=== PATIENT | male | born 1945 | race Two or more races ===

== ENCOUNTER 2019-10-25 21:15 | Emergency (ER) | payer MEDICARE, MEDICAID ==
--- NOTE | 2019-10-25 22:54 | ER Document Report ---
ED Medical Screen (RME) - General Chief Complaint: Headache Stated Complaint: HEADACHE,BLOOD SUGAR PROBLEM Time Seen by Provider: 10/25/19 22:51 Notes: HPI: 74-year-old male with diabetes hypertension high cholesterol and stroke x2 presenting for worsened generalized headache today. Headache worsened this afternoon. Patient states he has daily headaches since his strokes last year. Has requested referral to neurology from his PCP will has not yet received that. States headache became worse today, he did take 2 Tylenol this afternoon around 4 PM which did slightly help the headache. Denies visual change or loss, denies unilateral new onset weakness. Denies slurred speech PHYSICAL EXAMINATION: Patient able to ambulate to the room with a cane. Patient answers all questions appropriately. No nystagmus. I have greeted and performed a rapid initial assessment of this patient. A comprehensive ED assessment and evaluation of the patient, analysis of test results and completion of medical decision making process will be conducted by an additional ED providers. Physical Exam - Vital signs Vitals: Temp Pulse Resp BP Pulse Ox 97.9 F 97 16 140/64 H 96 10/25/19 21:23 10/25/19 21:23 10/25/19 21:23 10/25/19 21:23 10/25/19 21:23 Course - Vital Signs Vital signs: Temp Pulse Resp BP Pulse Ox 97.9 F 97 16 140/64 H 96 10/25/19 21:23 10/25/19 21:23 10/25/19 21:23 10/25/19 21:23 10/25/19 21:23
[2019-10-25 23:39] LABS: ABSOLUTE BASOPHILS # (AUTO) 0.1 10^3/uL (0.0-0.2); ABSOLUTE EOSINOPHILS # (AUTO) 0.1 10^3/uL (0.0-0.6); ABSOLUTE LYMPHOCYTES (AUTO) 1.4 10^3/uL (0.5-4.7); ABSOLUTE MONOCYTES (AUTO) 0.7 10^3/uL (0.1-1.4); ABSOLUTE NEUT (AUTO) 4.2 10^3/uL (1.7-8.2); BASOPHILS % (AUTO) 0.8 % (0-2); EOSINOPHILS % (AUTO) 2.1 % (0-6); HEMOGLOBIN 10.6 g/dL (13.5-17.0); MEAN CORPUSCULAR HGB CONC 34.3 g/dL (32.0-36.0); MEAN CORPUSCULAR VOLUME 73 fl (80-97); MONOCYTES % (AUTO) 10.6 % (3-13); PLATELET COUNT 310 10^3/uL (150-450); RED BLOOD COUNT 4.25 10^6/uL (4.35-5.55); RED CELL DISTRIBUTION WIDTH 20.1 % (11.5-14.0); SEGMENTED NEUTROPHILS % (AUTO) 64.5 % (42-78); TOTAL CELLS COUNTED % (AUTO) 100 %; WHITE BLOOD COUNT 6.5 10^3/uL (4.0-10.5)
--- NOTE | 2019-10-25 23:49 | RADIOLOGY REPORT (SQ) ---
INDICATION: headache stroke hx. COMPARISON: None CORRELATION: None TECHNIQUE: Noncontrast spiral axial CT images were obtained from the skull base to vertex. This exam was performed according to our departmental dose-optimization program, which includes automated exposure control, adjustment of the mA and/or kV according to patient size and/or use of iterative reconstruction techniques. FINDINGS: There is no evidence of acute intracranial hemorrhage, midline shift, mass effect or mass lesion. Perez-white differentiation is normal. There is no evidence of acute large territory infarct. Ventricles and extracerebral spaces are within normal limits, for age. The visualized paranasal sinuses are grossly clear. The orbits and eyeballs are unremarkable. The mastoid air cells are clear. Skull base and calvarium appear intact. IMPRESSION: No acute intracranial process is identified.
[2019-10-25 23:54] LABS: ALBUMIN 4.8 g/dL (3.5-5.0); ALKALINE PHOSPHATASE 81 U/L (38-126); ANION GAP 11 (5-19); ASPARTATE AMINO TRANSFERASE 14 U/L (17-59); BILIRUBIN,TOTAL 0.5 mg/dL (0.2-1.3); BLOOD UREA NITROGEN 35 mg/dL (7-20); CALCIUM 9.9 mg/dL (8.4-10.2); CARBON DIOXIDE 27 mmol/L (22-30); CHLORIDE 99 mmol/L (98-107); GLUCOSE 193 mg/dL (75-110); POTASSIUM 5.1 mmol/L (3.6-5.0); TOTAL PROTEIN 8.1 g/dL (6.3-8.2)
[2019-10-26] MEDS ORDERED: KETOROLAC TROMETHAMINE INJ/PF 30 MG/1 ML SDV IV ONE (02:26)
[2019-10-26] MEDS ORDERED: NORMAL SALINE 250 ML IV ONE (02:28)
[2019-10-26 02:47] LABS: APPEARANCE,URINE CLEAR; BILIRUBIN,URINE NEGATIVE (NEGATIVE); COLOR,URINE YELLOW; GLUCOSE, URINE NEGATIVE (NEGATIVE); KETONES,URINE NEGATIVE (NEGATIVE); PROTEIN,URINE NEGATIVE (NEGATIVE); URINE SPECIFIC GRAVITY 1.016; UROBILINOGEN,URINE NEGATIVE mg/dL (<2.0)
[2019-10-26 03:25] LABS: INTERNATIONAL RATION (INR) 1.06; PROTHROMBIN TIME 13.9 SEC (11.4-15.4)
--- NOTE | 2019-10-26 03:47 | ER Document Report ---
Entered by NORBERTO JACKSON SCRIBE 10/26/19 0226 Acting as scribe for:RODOLFO CAREY IV, MD ED Headache - General Chief Complaint: Headache Stated Complaint: HEADACHE,BLOOD SUGAR PROBLEM Time Seen by Provider: 10/25/19 22:51 Mode of Arrival: Ambulatory Information source: Patient, Relative Notes: This 74 year old male patient with a past medical history significant for diabetes, HLD, [place], and CVA x2 presents to the ED today accompanied by a relative with complaints of a severe generalized headache that started around 1600 yesterday afternoon. Patient is Khmer-speaking, so HPI is being relayed via [employer]. Patient had x2 strokes in March 2019 and has been complaining of headaches of varying intensity every day since. Patient took x2 Tylenol around 1999 that provided mild relief. Patients also complains of urinary frequency and intermittent constipation. According to patient's relative at bedside, the patient is "ill from his prostate" and has an appointment for a biopsy scheduled some time this month. He also sleeps during the day and is awake all night per relative. Relative admits that the patient does snore and that his PO intake consists of foods/drinks with a lot of sugar. - Related Data Home Medications: see list Past Medical History - General Information source: Patient, Relative - Social History Smoking Status: Former Smoker Cigarette use (# per day): No Chew tobacco use (# tins/day): No Smoking Education Provided: No Lives with: Family Family History: Reviewed & Not Pertinent Patient has suicidal ideation: No Patient has homicidal ideation: No - Past Medical History Cardiac Medical History: Reports: Hx Coronary Artery Disease, Hx Heart Attack, Hx Hypercholesterolemia Neurological Medical History: Reports: Hx Cerebrovascular Accident - x2 in N 2018 Endocrine Medical History: Reports: Hx Diabetes Mellitus Type 1, Hx Diabetes Mellitus Type 2 Past Surgical History: Reports: Hx Neurologic Surgery - spinal surgery due to an accident, Hx Vascular Surgery - x2 leg Review of Systems - Review of Systems Constitutional: No symptoms reported EENT: No symptoms reported Cardiovascular: No symptoms reported Respiratory: No symptoms reported Gastrointestinal: See HPI, Constipation Genitourinary: See HPI, Frequency Male Genitourinary: No symptoms reported Musculoskeletal: No symptoms reported Skin: No symptoms reported Hematologic/Lymphatic: No symptoms reported Neurological/Psychological: See HPI, Headaches -: Yes All other systems reviewed and negative Physical Exam - Vital signs Vitals: Temp Pulse Resp BP Pulse Ox 97.9 F 97 16 140/64 H 96 10/25/19 21:23 10/25/19 21:23 10/25/19 21:23 10/25/19 21:23 10/25/19 21:23 - General General appearance: Alert In distress: None - HEENT Head: Normocephalic, Atraumatic Eyes: Normal, Other - No nystagmus or photophobia Pupils: PERRL Neck: No: Meningismus - Respiratory Respiratory status: No respiratory distress Chest status: Nontender Breath sounds: Normal Chest palpation: Normal - Cardiovascular Rhythm: Regular Heart sounds: Normal auscultation Murmur: No Friction rub: No Gallop: None auscultated - Abdominal Inspection: Normal Distension: No distension Bowel sounds: Normal Tenderness: Nontender - Abdomen soft Organomegaly: No organomegaly - Back Back: Normal, Nontender - Extremities General upper extremity: Normal inspection General lower extremity: Normal inspection - Neurological Neuro grossly intact: Yes Orientation: AAOx4 - Psychological Associated symptoms: Normal affect, Normal mood - Skin Skin Temperature: Warm Skin Moisture: Dry Skin Color: Normal Course - Re-evaluation Re-evalutation: 10/26/19 05:21 Results of ED MSE discussed with patient and patient's family member. All questions were answered prior to discharge. Emergency signs and symptoms, re asons to return to the emergency department discussed with patient. - Vital Signs Vital signs: Temp Pulse Resp BP Pulse Ox 98.5 F 70 14 118/58 L 96 10/26/19 00:57 10/26/19 00:57 10/26/19 00:57 10/26/19 00:57 10/26/19 00:57 - Laboratory Result Diagrams: 10/25/19 23:14 10/25/19 23:14 Laboratory results interpreted by me: 10/25/19 10/25/19 10/25/19 23:09 23:14 23:14 RBC 4.25 L Hgb 10.6 L Hct 31.0 L MCV 73 L MCH 25.0 L RDW 20.1 H Potassium 5.1 H BUN 35 H Creatinine 1.50 H Est GFR ( Amer) 55 L Est GFR (MDRD) Non-Af 46 L Glucose 193 H POC Glucose 206 H AST 14 L Urine Blood 10/25/19 23:20 RBC Hgb Hct MCV MCH RDW Potassium BUN Creatinine Est GFR ( Amer) Est GFR (MDRD) Non-Af Glucose POC Glucose AST Urine Blood MODERATE H - Diagnostic Test Radiology reviewed: Reports reviewed Discharge - Discharge Clinical Impression: Headache Qualifiers: Headache type: unspecified Headache chronicity pattern: chronic headache Intractability: not intractable Qualified Code(s): R51 - Headache Insomnia Qualifiers: Insomnia type: unspecified Qualified Code(s): G47.00 - Insomnia, unspecified Constipation Qualifiers: Constipation type: unspecified constipation type Qualified Code(s): K59.00 - Constipation, unspecified Condition: Good Disposition: HOME, SELF-CARE Additional Instructions: Return to the Emergency Department without delay if any worse. You can use BENADRYL or MELATONIN to help with sleep. HOME CARE INSTRUCTIONS & INFORMATION: Thank you for choosing us for your medical needs. We hope you're satisfied with the care you received. After you leave, you must properly care for your problem and, at the same time, observe its progress. Any condition can change. Some illnesses can change rapidly over hours or days. If your condition worsens, return to the Emergency Department or see your physician promptly. ABOUT YOUR X-RAYS AND EKG'S: If you had an EKG or X-rays taken, they have been read by the Emergency Physician. The X-rays and EKG's will also be read by a Radiologist or Smoking Tobacco Cutter Operator within 24 hours. If discrepancies are noted, you will be notified by telephone. Please be certain the ED has a correct telephone number & address where you can be reached. Also, realize that some fractures or abnormalities do not show up on initial X-rays. If your symptoms continue, see your physician. ABOUT YOUR LABORATORY TEST: If you had laboratory tests, the results have been reviewed by the Emergency Physician. Some test results (for example cultures) may not be available for several days. You will be contacted if any test result shows you need additional treatment. Please be certain the ED has a correct telephone number and address where you can be reached. ABOUT YOUR MEDICATIONS: You will receive instructions on how to take your medic ine on the prescription label you receive. Additional information may be provided by the Pharmacy. If you have questions afterwards, call the ED for clarification or further instructions. Some prescribed medications may cause drowsiness. Do not perform tasks such as driving a car or operating machinery without consulting your Pharmacist. If you feel you need a refill of pain medication, your condition will need re-evaluation. Please do not call for a refill of any medication. ABOUT YOUR SIGNATURE: Signature of this document acknowledges to followin. Understanding that you received emergency treatment and that you may be released before al medical problems are known or treated. Please be certain the ED has a correct phone number & address where you can be reached. 2. Acknowledgement that you will arrange for follow-up care as recommended. 3. Authorization for the Emergency Physician to provide information to your follow-up Physician in order to maximize your care. AT ANY TIME, IF YOUR SYMPTOMS CHANGE SIGNIFICANTLY OR WORSEN OR YOU DEVELOP NEW SYMPTOMS, RETURN TO THE EMERGENCY DEPARTMENT IMMEDIATELY FOR RE-EVALUATION. OUR GOAL IS TO PROVIDE EXCELLENT MEDICAL CARE! WE HOPE THAT WE HAVE MET YOUR EXPECTATIONS DURING YOUR EMERGENCY DEPARTMENT VISIT AND THAT YOU FEEL YOU HAVE RECEIVED EXCELLENT CARE! Constipation Constipation is a common problem. It is especially likely as you get older . Constipation is a common cause of abdominal pain, but sometimes causes no symptoms at all. Causes of constipation include certain medications, dehydration, diets, inactivity, and low-fiber intake. Rarely, it can be a symptom of underlying disease. The physician has evaluated you for this. Avoid constipation by eating a diet high in fiber, fruits, and vegetables. Drink plenty of liquids. Get regular exercise. If possible, avoid constipating medicines like narcotic pain medication. Some vitamin tablets can cause constipation. Stool softeners may be needed for difficult cases. An excellent stool softener is Konsyl which is available at [facility], and [employer] drug store. Just add a teaspoon to a glass of pineapple or orange juice daily or twice a day if needed. Laxatives are useful for occasional constipation. You should use them only when necessary. Too-frequent use can make your bowels dependent on them. Some over the counter laxatives available without prescription are: Milk of Magnesia, 1-2 tablespoons twice a day Dulcolax, 5 mg pill or 10 mg suppository. Citrate of Magnesia, 4-5 ounces a day for a day or two For acute constipation, Fleet's Enemas and Dulcolax suppositories are helpful. Chronic, mcfp use of laxatives or enemas is not a good idea. Your bowel may become dependant on them. You do not need to have a bowel movement every day. Many people do fine with a bowel movement every three or four days. You should call your doctor or return for re-evaluation if you pass blood in the stool, or if you develop fever or increasing abdominal pain. Headache The physician does not feel that the headache you are experiencing has a serious underlying cause. Most headaches are due to emotional stress, with resultant muscle tension (tension headache). Occasionally, headaches are secondary to changes in the blood vessels of the scalp (vascular headache and migraine headache). Sometimes, a headache is the first symptom of another developing illness, such as a viral infection. You have no evidence of stroke, bleeding, meningitis, or other serious cause of your headache. The treatment of headaches varies with the severity and cause of the pain. Not all headaches need pain shots. In fact, there is evidence that using narcotics for headaches may make them worse in the long run. The physician will determine the therapy that's in your best interest. If you develop a fever, if the headache is different from any you've previously experienced, or if the headache progressively worsens, then call your physician at once or go to the emergency room. Insomnia Everybody has trouble sleeping now and then. When it becomes a frequent problem, you must look for an underlying cause. Depression can interfere with sleep. Anxiety keeps people from falling asleep, while true depression causes fitful sleep and early awakening. If you think anxiety or depression might be your problem, your doctor can help. Many medicines can interfere with sleep. Try cutting back or eliminating caffeine. Watch out for "energizing" vitamins and herbs! Alcohol interferes powerfully with normal sleep. "Rebound insomnia" results when you stop taking sedating medicines like antihistamines, antianxiety medicine, or sleeping pills. Any medical problem that causes pain or bladder discomfort can interfere with sleep. Discuss any problem you have with your doctor. Get regular exercise. Have regular sleep times. Don't "sleep in." Avoid late afternoon naps. Sleeping pills may be temporarily helpful, but are never a long-term solution. Referrals: BRIELLE JIMENEZ MD [HONORARY] - Follow up as needed Print Language: Khmer I personally performed the services described in the documentation, reviewed and edited the documentation which was dictated to the scribe in my presence, and it accurately records my words and actions.
[2019-10-26 05:58] VITALS: BP 128/52
== END 2019-10-26 05:56 | disposition home or self-care (01) ==
LOC: ER 21:15
DX: R51 Headache (principal); G47.00 Insomnia, unspecified; K59.00 Constipation, unspecified; R06.83 Snoring; R35.0 Frequency of micturition; E11.9 Type 2 diabetes mellitus without complications; I25.10 Atherosclerotic heart disease of native coronary artery without angina pectoris; I25.2 Old myocardial infarction; Z86.73 Personal history of transient ischemic attack (TIA), and cerebral infarction without residual deficits; Z87.891 Personal history of nicotine dependence
CPT/HCPCS: 99284; 96361; 96374; 36415; 82962; 85025; 85610; 80053; 81001; 70450; J1885; J7050

== ENCOUNTER 2020-01-19 14:00 | Emergency (ER) | payer MEDICARE, MEDICAID ==
[2020-01-19 14:11] VITALS: BP 139/62
[2020-01-19] MEDS ORDERED: NORMAL SALINE 1000 ML 1,000 ML IV ONE (14:17)
--- NOTE | 2020-01-19 14:18 | ER Document Report ---
ED Blood Sugar Problem - General Chief Complaint: High Blood Sugar Stated Complaint: BLOOD SUGAR PROBLEMS Time Seen by Provider: 01/19/20 14:14 Mode of Arrival: Wheelchair Information source: Patient, Relative Notes: 74-year-old male presented to ED for complaint of high blood pressure high blood sugar and frequent urination. He states that is very uncomfortable having such frequent urination. He does have type 2 diabetes. He is on pills for his diabetes. He does speak Maltese so I will need to get a complete exam using the [employer]. Cecile recyclable materials collector #[id number] I determined that the patient is here mainly because he is voiding every 1/2-1 hour since morning. He states he does have a history of prostate problem and he did have a breakfast of almost all starches. He states that he takes glipizide they called his doctor and they increase that to 2 pills a day instead of 1 because his sugar was so high. We have convinced the patient that he needs to lose a new self catheter every time he self caths himself. Family states he has a big box of them but never wants to throw them away. Get the blood work and urine and then determine what other treatments he needs. I have ordered a liter of fluid and the Latham catheter to bring down his current sugar. REVIEW OF SYSTEMS: CONSTITUTIONAL : Denies fever, chills, or sweats. Denies recent illness. EENT: Denies eye, ear, throat, or mouth pain or symptoms. Denies nasal or sinus congestion. CARDIOVASCULAR: Denies chest pain. RESPIRATORY: Denies cough, cold, or chest congestion. Denies shortness of breath, difficulty breathing, or wheezing. GASTROINTESTINAL: Denies abdominal pain. Denies nausea, vomiting, or diarrhea. Denies constipation. Last BM: GENITOURINARY: Patient self caths due to neurological deficits due to prior neurological surgery prostate cancer MUSCULOSKELETAL: Denies neck or back pain or joint pain or swelling. SKIN: Denies rash or skin lesions. HEMATOLOGIC : Denies easy bruising or bleeding. LYMPHATIC: Denies swollen, enlarged glands. NEUROLOGICAL: Patient has history of 2 prior strokes partial paralysis and prostate cancer causing problems with his urine so he has to self cath he does have some problems with gait but uses a cane. PSYCHIATRIC: Denies anxiety or stress or depression. ALL OTHER SYSTEMS REVIEWED AND NEGATIVE. PHYSICAL EXAMINATION: GENERAL: Well-appearing, well-nourished and in no acute distress. HEAD: Atraumatic, normocephalic. EYES: Pupils equal round and reactive to light, extraocular movements intact, sclera anicteric, conjunctiva are normal. ENT: nares patent, oropharynx clear without exudates. Moist mucous membranes. NECK: Normal range of motion, supple without lymphadenopathy LUNGS: Breath sounds clear to auscultation bilaterally and equal. No wheezes rales or rhonchi. HEART: Regular rate and rhythm without murmurs ABDOMEN: Soft, nontender, normoactive bowel sounds. No guarding, no rebound. No masses appreciated. Genitourinary: Patient was able to self cath after given strict instructions on sterile technique or at least clean technique and to please not repeat use of home catheters when he has a whole box full EXTREMITIES: Normal range of motion, no pitting or edema. No cyanosis. NEUROLOGICAL: Uses cane at home due to neurological deficit from neurological surgeries and previous stroke as well as prostate cancer PSYCH: Normal mood, normal affect. SKIN: Warm, Dry, normal turgor, no rashes or lesions noted. - HPI Onset: Other - Several days Quality of pain: No pain Associated symptoms: Frequent urination, Other - Decreased appetite dry mouth has diabetes Similar symptoms previously: Yes Recently seen / treated by doctor: Yes Past Medical History - General Information source: Patient - Social History Smoking Status: Never Smoker Frequency of alcohol use: None Drug Abuse: None Lives with: Family Family History: Reviewed & Not Pertinent Patient has suicidal ideation: No Patient has homicidal ideation: No - Past Medical History Cardiac Medical History: Reports: Hx Coronary Artery Disease, Hx Heart Attack, Hx Hypercholesterolemia Pulmonary Medical History: Reports: None EENT Medical History: Reports: None Neurological Medical History: Reports: Hx Cerebrovascular Accident - x2 in March 2019 Endocrine Medical History: Reports: Hx Diabetes Mellitus Type 2 Renal/ Medical History: Reports: None Malignancy Medical History: Reports Hx Prostate Cancer GI Medical History: Reports: None Musculoskeletal Medical History: Reports Hx Arthritis, Reports Hx Muscle Weakness Skin Medical History: Reports None Psychiatric Medical History: Reports: None Traumatic Medical History: Reports: None Infectious Medical History: Reports: None Past Surgical History: Reports: Hx Neurologic Surgery - spinal surgery due to an accident, Hx Vascular Surgery - x2 leg Physical Exam - Vital signs Vitals: Temp 98.3 F 01/19/20 14:01 Course - Re-evaluation Re-evalutation: 01/19/20 17:18 Cecile recyclable materials collector [id number] was used to discuss the lab results and the plan for discharge. Patient verbalized understanding and agreement with discharge. Written report of labs was given to patient to follow-up with his primary care doctor. He did have some mild renal insufficiency elevated blood sugar which was treated and he is feeling better with the IV fluids. He will be discharged home to continue his current medications and follow-up with the primary care doctor. - Vital Signs Vital signs: Temp Pulse Resp BP Pulse Ox 97.8 F 76 20 139/62 H 98 01/19/20 14:06 01/19/20 14:06 01/19/20 14:06 01/19/20 14:06 01/19/20 14:06 - Laboratory Result Diagrams: 01/19/20 15:40 01/19/20 15:40 Laboratory results interpreted by me: 01/19/20 01/19/20 01/19/20 14:08 15:30 15:40 Hgb 11.1 L Hct 33.0 L MCV 75 L MCH 25.0 L RDW 18.5 H BUN Creatinine Est GFR (MDRD) Non-Af Glucose POC Glucose 207 H Creatine Kinase Total Protein Albumin Ur Leukocyte Esterase SMALL H 01/19/20 15:40 Hgb Hct MCV MCH RDW BUN 26 H Creatinine 1.29 H Est GFR (MDRD) Non-Af 54 L Glucose 167 H POC Glucose Creatine Kinase 49 L Total Protein 8.6 H Albumin 5.1 H Ur Leukocyte Esterase Discharge - Discharge Clinical Impression: Frequent urination, Renal insufficiency, Elevated blood sugar Condition: Stable Disposition: HOME, SELF-CARE Additional Instructions: DIABETES: You have an abnormally high blood sugar, suspicious for diabetes. Not all high blood sugar requires long-term treatment. High blood sugar can be due to medications, , or the stress of illness. (These cases are "borderline diabetes.") If the doctor feels your high blood sugar might get better with time, you may not require treatment now. It's very important that you follow through. Uncontrolled high blood sugar leads to early heart disease, strokes, nerve damage, eye damage, and kidney damage. All diabetics should follow a diet designed to control the blood sugar. Overweight diabetics should exercise regularly and lose weight. If this is not sufficient to control the blood sugar, pills or insulin shots are necessary. Younger people who develop diabetes almost always require insulin daily. Home testing of blood sugars or urine sugar is required. Diabetic teaching is available to help you figure insulin doses and monitor the blood sugar. Call the physician if there is faintness, excess sleepiness, or very rapid breathing. If hypoglycemia (LOW blood sugar) develops, symptoms are shakiness, weakness, sweating, and confusion. In this case, you should eat or drink something with sugar at once. ORAL HYPOGLYCEMIC MEDICATION: Oral hypoglycemics are medicines that lower blood sugar in diabetics. They are not effective for younger diabetics who require insulin. Some brands are tolbutamide, Orinase, glipizide, Glucotrol, glyburide, DiaBeta, Glynase, and Micronase. Some medications can increase or decrease the effect of Diabinese. Examples are Clofibrate (Atromid-S), phenylbutazone (Butazolidin), aspirin, sulfonamides, Coumadin, allopurinol (Zyloprim), probenecid (Benemid), acetazolamide (Diamox), beta blockers, steroids, estrogens, Indocin, INH, Levothyroxine, nicotinic acid, Diflucan, Dilantin, and thiazide diuretics. Be sure your doctor knows all the medicines you take, and talk to your doctor before making any changes in your medicines. If you develop symptoms of shakiness, sweats, and lightheadedness, your blood sugar may have gone too low. Eat or drink a small amount of sweet food. If symptoms don't go away, call your doctor. Kidney function tests are elevated. Please call these to your primary care doctor. Your BUN was 26 and creatinine was 1.26. You states she has not had any problems with this before. You did not have a UTI. The fact that you have elevated blood sugars and renal insufficiency could be why you are having the frequent urination. Please call your doctor on Tuesday. Given you a copy of your lab work to discuss with your doctor. FOLLOW-UP CARE: If you have been referred to a physician for follow-up care, call the physicians office for an appointment as you were instructed or within the next two days. If you experience worsening or a significant change in your symptoms, notify the physician immediately or return to the Emergency Department at any time for re-evaluation. Forms: Elevated Blood Pressure
[2020-01-19 15:39] LABS: APPEARANCE,URINE CLEAR; BILIRUBIN,URINE NEGATIVE (NEGATIVE); COLOR,URINE COLORLESS; GLUCOSE, URINE NEGATIVE (NEGATIVE); KETONES,URINE NEGATIVE (NEGATIVE); LEUKOCYTE ESTERASE,URINE SMALL (NEGATIVE); NITRITE,URINE NEGATIVE (NEGATIVE); PROTEIN,URINE NEGATIVE (NEGATIVE); URINE SPECIFIC GRAVITY 1.006; UROBILINOGEN,URINE NEGATIVE mg/dL (<2.0)
[2020-01-19 16:03] LABS: VENOUS BLOOD PH 7.37 (7.30-7.42)
[2020-01-19 16:04] LABS: ABSOLUTE BASOPHILS # (AUTO) 0.1 10^3/uL (0.0-0.2); ABSOLUTE EOSINOPHILS # (AUTO) 0.1 10^3/uL (0.0-0.6); ABSOLUTE LYMPHOCYTES (AUTO) 1.2 10^3/uL (0.5-4.7); ABSOLUTE MONOCYTES (AUTO) 0.5 10^3/uL (0.1-1.4); ABSOLUTE NEUT (AUTO) 3.7 10^3/uL (1.7-8.2); EOSINOPHILS % (AUTO) 1.3 % (0-6); HEMOGLOBIN 11.1 g/dL (13.5-17.0); LYMPHOCYTES % (AUTO) 21.2 % (13-45); MEAN CORPUSCULAR HGB CONC 33.5 g/dL (32.0-36.0); MEAN CORPUSCULAR VOLUME 75 fl (80-97); PLATELET COUNT 335 10^3/uL (150-450); RED BLOOD COUNT 4.42 10^6/uL (4.35-5.55); RED CELL DISTRIBUTION WIDTH 18.5 % (11.5-14.0); SEGMENTED NEUTROPHILS % (AUTO) 67.5 % (42-78); TOTAL CELLS COUNTED % (AUTO) 100 %; WHITE BLOOD COUNT 5.4 10^3/uL (4.0-10.5)
[2020-01-19 16:34] LABS: ALBUMIN 5.1 g/dL (3.5-5.0); ALKALINE PHOSPHATASE 73 U/L (38-126); ANION GAP 13 (5-19); ASPARTATE AMINO TRANSFERASE 18 U/L (17-59); BILIRUBIN,DIRECT 0.3 mg/dL (0.0-0.4); BILIRUBIN,TOTAL 0.6 mg/dL (0.2-1.3); BLOOD UREA NITROGEN 26 mg/dL (7-20); CALCIUM 10.2 mg/dL (8.4-10.2); CARBON DIOXIDE 29 mmol/L (22-30); CHLORIDE 100 mmol/L (98-107); CREATINE KINASE 49 U/L (55-170); GLUCOSE 167 mg/dL (75-110); POTASSIUM 4.4 mmol/L (3.6-5.0); TOTAL PROTEIN 8.6 g/dL (6.3-8.2)
== END 2020-01-19 18:19 | disposition home or self-care (01) ==
LOC: ER 14:00
DX: E11.65 Type 2 diabetes mellitus with hyperglycemia (principal); I10 Essential (primary) hypertension; N28.9 Disorder of kidney and ureter, unspecified; R35.0 Frequency of micturition; R63.0 Anorexia; R68.2 Dry mouth, unspecified; I25.10 Atherosclerotic heart disease of native coronary artery without angina pectoris; Z79.84 Long term (current) use of oral hypoglycemic drugs; Z85.46 Personal history of malignant neoplasm of prostate
CPT/HCPCS: 99284; 96360; 36415; 82962; 82550; 85025; 80053; 81001; 84484; 82803; J7030